=== PATIENT | female | born 1985 | race Caucasian/White ===

== ENCOUNTER 2017-02-27 18:36 | Emergency (ER) | payer OTHER ==
[2017-02-27 18:58] VITALS: PULSE 97; RESP 18
[2017-02-27] MEDS ORDERED: SODIUM CHLORIDE 0.9% 500 ML IV STA (19:53)
[2017-02-27] MEDS ORDERED: ONDANSETRON 4 MG/2 ML VIAL IVP STA (19:53)
[2017-02-27] MEDS ORDERED: KETOROLAC 30 MG/ML 1 ML VIAL IVP STA (19:53)
--- NOTE | 2017-02-27 20:00 | ED ---
General Adult HPI - General Chief complaint: Dizziness Stated complaint: chest tightness, hypertension, left shoulder numb Time Seen by Provider: 02/27/17 19:30 Source: patient, family, RN notes reviewed, old records reviewed Mode of arrival: wheelchair Limitations: no limitations - History of Present Illness Initial comments: Chief complaint history of present illness this is a 29-year-old female here with several complaints. The patient reports for the past several days she's had a headache and dizziness. She was evaluated today by her chronic pain management doctor blood pressure was elevated. It was suspected that her dizziness was associated with elevated blood pressure. She's less dizziness when she was earlier. She does have a headache. Nausea no vomiting no photophobia she does have a history of migraines. The patient's blood pressure today is 130/71. And again she is less dizzy. She also had shots in her left trapezius muscle because of chronic pain and stiffness. - Related Data Home Medications Medication Instructions Recorded Confirmed Cholecalciferol (Vitamin D3) 2,000 unit PO DAILY 02/27/17 02/27/17 [Vitamin D3] DULoxetine HCL [Cymbalta] 30 mg PO BID 02/27/17 02/27/17 Ferrous Sulfate [Feosol] 325 mg PO DAILY 02/27/17 02/27/17 Fexofenadine HCl [Ciera Allergy] 180 mg PO HS 02/27/17 02/27/17 Gabapentin [Neurontin] 800 mg PO QID 02/27/17 02/27/17 Ibuprofen 800 mg PO TID PRN 02/27/17 02/27/17 Magnesium Oxide [Mag-Ox] 250 mg PO TID 02/27/17 02/27/17 Methocarbamol [Robaxin] 750 mg PO Q4H PRN 02/27/17 02/27/17 Omeprazole [PriLOSEC] 40 mg PO DAILY 02/27/17 02/27/17 Ondansetron [Zofran] 4 mg PO QAM 02/27/17 02/27/17 Polyethylene Glycol 3350 [Miralax] 17 gm PO DAILY PRN 02/27/17 02/27/17 oxyCODONE-APAP 5-325MG [Percocet 1 tab PO BID PRN 02/27/17 02/27/17 5-325 mg] traZODone HCL 25 mg PO HS 02/27/17 02/27/17 Allergies Allergy/AdvReac Type Severity Reaction Status Date / Time acetaminophen [From Vicodin] Allergy Itching Verified 02/27/17 19:26 hydrocodone [From Vicodin] Allergy Itching Verified 02/27/17 19:26 Penicillins Allergy Rash/Hives Verified 02/27/17 19:26 Review of Systems ROS Statement: Those systems with pertinent positive or pertinent negative responses have been documented in the HPI. Review of systems. Mild headache mild photophobia no stiff neck or meningismus. She reports she has some discomfort to her chest which takes deep breath lateral rib cage. Dizziness was worse yesterday before when her blood pressure was elevated today less dizzy. As noted in the chief complaint and she did receive several shots in her left trapezius muscle. She states her left arm pain which is chronic is better today for the having had low shots. All systems were reviewed past medical problems significant for seizure disorder last time she had a seizure was 6 years ago. He does not take the Lamictal described by [facility] she does take Neurontin. She also had a syncopal episodes when she was younger due to low blood pressure. She also has had an injury to her right ankle less the surgery. Resulted in chronic regional pain syndrome type II to her leg. She's had 2 C-sections and laparoscopy. Family history noncontributory ALLERGIES to acetaminophen hydrocodone penicillins. She smokes daily strongly encouraged to stop denies alcohol use denies drugs ROS Other: All systems not noted in ROS Statement are negative. Past Medical History Past Medical History: Seizure Disorder, Syncope Additional Past Medical History / Comment(s): CRPS2; Chronic back pain; Pelvic floor tension myalgia History of Any Multi-Drug Resistant Organisms: None Reported Past Surgical History: Section, Orthopedic Surgery Additional Past Surgical History / Comment(s): Laparoscopy Past Anesthesia/Blood Transfusion Reactions: No Reported Reaction Past Psychological History: Anxiety Smoking Status: Current every day smoker Past Alcohol Use History: None Reported Past Drug Use History: None Reported - Past Family History Mother Family Medical History: No Reported History General Exam - General Exam Comments Initial Comments: General: The patient is awake and alert, planes of being dizzy yesterday before during which time her blood pressure was elevated. Less dizzy today when her blood pressure is down. No nausea no vomiting but she does have headache ongoing for several days does have history of migraines. Vital signs show temperature 97.5 pulse 97 respiratory rate 18 pulse ox 97% room air blood pressure 131/71 Eye: Pupils are equal, round and reactive to light, extra-ocular movements are intact ; there is normal conjunctiva bilaterally. No signs of icterus. Mild photophobia Ears, nose, mouth and throat: There are moist mucous membranes . Neck: The neck is supple, patient received 2 shots in her left trapezius muscle by her pain management doctor today. Cardiovascular: There is a regular rate and rhythm. No murmur, rub or gallop is appreciated. Respiratory: Lungs are clear to auscultation, respirations are non-labored, breath sounds are equal. No wheezes, stridor, rales, or rhonchi. Deep breathing and coughing causes discomfort to the lateral chest rich. Gastrointestinal: Soft, non-distended, non-tender abdomen without masses or organomegaly noted. There is no rebound or guarding present. Back: Chronic musculoskeletal pain Musculoskeletal: Chronic pain to left wrist post injury when she fell through a glass while having a seizure many years ago. Also chronic left foot ankle pain from a crush injury on the job. Neurological: No focal or lateralizing findings. No stiff neck no meningismus. History of migraines. Skin: Skin is warm and dry and no rashes or lesions are noted. Limitations: no limitations Course Vital Signs 02/27/17 18:55 Temperature 97.5 F L Pulse Rate 97 Respiratory 18 Rate Blood Pressure 131/71 O2 Sat by Pulse 97 Oximetry EKG Findings - EKG Comments: EKG Findings:: EKG was done and reviewed at 1845 showing normal sinus rhythm with sinus arrhythmia no acute ST elevation no ectopy no ischemic changes. Rate 83 VA interval was 122 QRS 88 QT [address] Barrera Medical Decision Making - Medical Decision Making Vital decision making the patient's white count is 9.8 hemoglobin 14 hematocrit of 41 with a BUN to creatinine 0.6 and GFR greater than 60. Potassium 4.3 glucose 1:15 troponin less than 0.012. Patient did not wait at the chest x-ray she states she feels better wants to go home. Patient advised to follow-up with family physician - Lab Data Result diagrams: 02/27/17 20:15 02/27/17 20:15 Lab Results 02/27/17 02/27/17 02/27/17 Range/Units 20:15 20:15 20:15 WBC 9.8 (3.8-10.6) k/uL RBC 4.48 (3.80-5.40) m/uL Hgb 14.2 (11.4-16.0) gm/dL Hct 41.4 (34.0-46.0) % MCV 92.3 (80.0-100.0) fL MCH 31.6 (25.0-35.0) pg MCHC 34.3 (31.0-37.0) g/dL RDW 13.3 (11.5-15.5) % Plt Count 184 (150-450) k/uL Neutrophils % 91 % Lymphocytes % 7 % Monocytes % 1 % Eosinophils % 0 % Basophils % 0 % Neutrophils # 8.9 H (1.3-7.7) k/uL Lymphocytes # 0.7 L (1.0-4.8) k/uL Monocytes # 0.1 (0-1.0) k/uL Eosinophils # 0.0 (0-0.7) k/uL Basophils # 0.0 (0-0.2) k/uL Sodium 142 (137-145) mmol/L Potassium 4.3 (3.5-5.1) mmol/L Chloride 114 H (98-107) mmol/L Carbon Dioxide 20 L (22-30) mmol/L Anion Gap 8 mmol/L BUN 7 (7-17) mg/dL Creatinine 0.60 (0.52-1.04) mg/dL Est GFR (MDRD) Af Amer >60 (>60 ml/min/1.73 sqM) Est GFR (MDRD) Non-Af >60 (>60 ml/min/1.73 sqM) Glucose 115 H (74-99) mg/dL Calcium 9.5 (8.4-10.2) mg/dL Total Bilirubin 0.4 (0.2-1.3) mg/dL AST 17 (14-36) U/L ALT 33 (9-52) U/L Alkaline Phosphatase 54 (38-126) U/L Troponin I <0.012 (0.000-0.034) ng/mL Total Protein 6.5 (6.3-8.2) g/dL Albumin 4.1 (3.5-5.0) g/dL Disposition Clinical Impression: Dizziness Disposition: HOME SELF-CARE Condition: Fair Instructions: Dizziness (ED) Additional Instructions: Change positions slowly follow with her family physician take medications as directed Referrals: Clementina Galvan MD [Primary Care Provider] - 1-2 days Time of Disposition: 22:16
[2017-02-27 20:22] LABS: Basophils % (A) 0 %; CH 31.7; CHCM 34.5; Eosinophils % (A) 0 %; HCT 41.4 % (34.0-46.0); HDW 2.31; HGB 14.2 gm/dL (11.4-16.0); Luc # (Auto) 0.03; Luc % (Auto) 0; Lymphocytes # (A) 0.7 k/uL (1.0-4.8); Lymphocytes % (A) 7 %; MCH 31.6 pg (25.0-35.0); MCHC 34.3 g/dL (31.0-37.0); MCV 92.3 fL (80.0-100.0); Mean Platelet Volume 10.8; Monocytes # (A) 0.1 k/uL (0-1.0); Monocytes % (A) 1 %; Neutrophils # (A) 8.9 k/uL (1.3-7.7); Neutrophils % (A) 91 %; RBC 4.48 m/uL (3.80-5.40); RDW 13.3 % (11.5-15.5); WBC 9.8 k/uL (3.8-10.6); WBC (Perox) 9.72
[2017-02-27 20:46] LABS: ALT 33 U/L (9-52); AST 17 U/L (14-36); Alkaline Phosphatase 54 U/L (38-126); Anion Gap 8 mmol/L; Blood Urea Nitrogen 7 mg/dL (7-17); Calcium 9.5 mg/dL (8.4-10.2); Carbon Dioxide 20 mmol/L (22-30); Chloride 114 mmol/L (98-107); Glucose 115 mg/dL (74-99); Non-African American GFR(MDRD) >60 (>60 ml/min/1.73 sqM); Potassium 4.3 mmol/L (3.5-5.1); Sodium 142 mmol/L (137-145); Total Bilirubin 0.4 mg/dL (0.2-1.3); Total Protein 6.5 g/dL (6.3-8.2)
[2017-02-27 22:51] VITALS: BP 127/59; TEMP 98.6
== END 2017-02-27 22:52 | disposition home or self-care (01) ==
LOC: EC 18:36
DX: R42 Dizziness and giddiness (principal); G40.909 Epilepsy, unspecified, not intractable, without status epilepticus; R51 Headache; R07.89 Other chest pain; R20.0 Anesthesia of skin; G89.29 Other chronic pain; M54.9 Dorsalgia, unspecified; F41.9 Anxiety disorder, unspecified; F17.200 Nicotine dependence, unspecified, uncomplicated; Z86.69 Personal history of other diseases of the nervous system and sense organs; Z79.899 Other long term (current) drug therapy; Z88.5 Allergy status to narcotic agent; Z88.0 Allergy status to penicillin
CPT/HCPCS: 96361 ×4; 96374 ×2; 96375 ×2; 99284 ×2; 36415; 93005; 80053; 84484; 85025; J2405; J1885

== ENCOUNTER 2017-03-08 18:29 | Emergency (ER) | payer OTHER ==
[2017-03-08] MEDS ORDERED: LORazepam 2 MG/ML SYRINGE IV STA (19:09)
--- NOTE | 2017-03-08 19:17 | ED ---
General Adult HPI - General Chief complaint: Seizure Stated complaint: SEIZURE X 3 Source: patient, family, RN notes reviewed, old records reviewed Mode of arrival: wheelchair Limitations: no limitations - History of Present Illness Initial comments: Complaint history of present illness is a 31-year-old female here because she had 2 possibly 3 seizures today lasting less than 2 minutes. Her significant other reports she had one just prior to coming in the room there was no post ictal. With this particular seizure. She also reports she's been dizzy lately bumped her head 3 days ago had a seizure home yesterday. She does have a history of seizures and used to be on Lamictal but has not been taking that for a long time because her last seizure prior to yesterday was 6 years ago. Her significant other reports that seizures are usually related to stress. Patient is seeing a doctor for chronic pain and her seizures. She takes gabapentin for both seizures and chronic pain. She is also on Percocet. Her significant other who is at bedside was giving the nurse a hard time while she while she was starting an IV. He was asked to allow her to do her job. He is also asked to allow the patient to answer questions. - Related Data Home Medications Medication Instructions Recorded Confirmed Cholecalciferol (Vitamin D3) 2,000 unit PO DAILY 02/27/17 03/08/17 [Vitamin D3] DULoxetine HCL [Cymbalta] 30 mg PO BID 02/27/17 03/08/17 Ferrous Sulfate [Feosol] 325 mg PO DAILY 02/27/17 03/08/17 Fexofenadine HCl [Ciera Allergy] 180 mg PO HS 02/27/17 03/08/17 Gabapentin [Neurontin] 800 mg PO QID 02/27/17 03/08/17 Ibuprofen 800 mg PO TID PRN 02/27/17 03/08/17 Magnesium Oxide [Mag-Ox] 250 mg PO DAILY 02/27/17 03/08/17 Methocarbamol [Robaxin] 750 mg PO Q4H PRN 02/27/17 03/08/17 Omeprazole [PriLOSEC] 40 mg PO DAILY 02/27/17 03/08/17 Ondansetron [Zofran] 4 mg PO DAILY PRN 02/27/17 03/08/17 oxyCODONE-APAP 5-325MG [Percocet 1 tab PO BID PRN 02/27/17 03/08/17 5-325 mg] traZODone HCL 25 mg PO HS 02/27/17 03/08/17 Previous Rx's Medication Instructions Recorded Phenytoin Sodium Extended 100 mg PO TID #90 capsule 03/08/17 [Dilantin] Allergies Allergy/AdvReac Type Severity Reaction Status Date / Time acetaminophen [From Vicodin] Allergy Itching Verified 03/08/17 19:39 hydrocodone [From Vicodin] Allergy Itching Verified 03/08/17 19:39 Penicillins Allergy Rash/Hives Verified 03/08/17 19:39 Review of Systems ROS Statement: Those systems with pertinent positive or pertinent negative responses have been documented in the HPI. You have systems mild headache mild photophobia she does have history of migraines. No complaint of visual acuity changes. She did get 2 shots in her neck approximately 9 days ago which she states helped the pain. Denies chest pain shortness breath GI/ problems. States she's under great deal stress because they're moving. All systems are reviewed. Past medical problems seizure disorder as noted above last seizure was over 6 years ago. He is to take Lamictal but stopped it after the seizure stopped for a prolonged period of time 1 history syncopal episode years ago. Chronic pain to her ankle and hand from previous injuries. Also chronic back pain. Surgeries and laparoscopy. ALLERGIES to acetaminophen hydrocodone and penicillin. Smokes daily. Denies alcohol use denies illegal drug use ROS Other: All systems not noted in ROS Statement are negative. Past Medical History Past Medical History: Seizure Disorder, Syncope Additional Past Medical History / Comment(s): CRPS2; Chronic back pain; Pelvic floor tension myalgia History of Any Multi-Drug Resistant Organisms: None Reported Past Surgical History: Section, Orthopedic Surgery Additional Past Surgical History / Comment(s): Laparoscopy Past Anesthesia/Blood Transfusion Reactions: No Reported Reaction Past Psychological History: Anxiety Smoking Status: Current every day smoker Past Alcohol Use History: None Reported Past Drug Use History: None Reported - Past Family History Mother Family Medical History: No Reported History General Exam - General Exam Comments Initial Comments: General: The patient is awake and alert, in no distress, and does not appear acutely ill. She has seizures when she is under stress. Also complaining of a headache , history of chronic migraines. Vital signs temperature 98.6 pulse 96 respiratory rate 18 pulse ox 90% room air blood pressure 140/69 Eye: Pupils are equal, round and reactive to light, extra-ocular movements are intact ; there is normal conjunctiva bilaterally. No signs of icterus. Ears, nose, mouth and throat: There are moist mucous membranes and no oral lesions. Neck: Chronic neck and back pain and left arm pain. Received shots in her left trapezius muscle 9 days ago. Cardiovascular: There is a regular rate and rhythm. No murmur, rub or gallop is appreciated. Respiratory: Lungs are clear to auscultation, respirations are non-labored, breath sounds are equal. No wheezes, stridor, rales, or rhonchi. Gastrointestinal: Soft, non-distended, non-tender abdomen without masses or organomegaly noted. There is no rebound or guarding present. No CVA tenderness. Bowel sounds are unremarkable. Back: Chronic back pain no new back pain. Denies falling recently. Musculoskeletal: Chronic ankle and hand pain from previous injuries. Neurological: Neurologically grossly intact, no focal or lateralizing findings other than chronic pain to ankle and left hand from previous injuries. Skin: Skin is warm and dry and no rashes or lesions are noted. Psychiatric: Past psychological history of anxiety. Significant other states her seizures are often precipitated by stress. Limitations: no limitations Course Vital Signs 03/08/17 18:31 Temperature 98.6 F Pulse Rate 96 Respiratory 18 Rate Blood Pressure 140/69 O2 Sat by Pulse 98 Oximetry Medical Decision Making - Medical Decision Making Medical decision making; patient's white count is 10 hemoglobin 14 hematocrit of 44, potassium 4.0 with a BUN 6 creatinine 0.8 GFR greater than 60. Glucose 73. Urine was positive for oxycodone. The patient does states she takes Percocet. CT the brain was done and reviewed by radiologist his findings are there is no acute intracranial hemorrhage, mass effect, midline shift identified. The ventricles and sulci are within normal limits in size. Donaldson-white matter differentiation is maintained. The globes are intact and the visualized sinuses are clear. Impression; no acute intracranial hemorrhage, mass effect, or midline shift seen. Unremarkable study. As read by Dr. alva The patient was given 1 mg of Ativan IV in part to help her relax and she was anxious. She states under stress she seems to have seizures. The patient does have a neurologist. Patient states she's been on various medications for seizures but she didn't like the way typical made her feel. In the meanwhile patient released given a starting dose by IV loading of Dilantin 500 mg and placed on Dilantin to be taken until she follows up with her neurologist. She will be placed on Dilantin 100 mg 3 times daily until she sees her neurologist. - Lab Data Result diagrams: 03/08/17 19:00 03/08/17 19:00 Lab Results 03/08/17 03/08/17 03/08/17 Range/Units 19:00 19:00 19:50 WBC 10.1 (3.8-10.6) k/uL RBC 4.63 (3.80-5.40) m/uL Hgb 14.3 (11.4-16.0) gm/dL Hct 44.0 (34.0-46.0) % MCV 95.1 (80.0-100.0) fL MCH 31.0 (25.0-35.0) pg MCHC 32.5 (31.0-37.0) g/dL RDW 13.5 (11.5-15.5) % Plt Count 198 (150-450) k/uL Neutrophils % 65 % Lymphocytes % 27 % Monocytes % 5 % Eosinophils % 2 % Basophils % 1 % Neutrophils # 6.5 (1.3-7.7) k/uL Lymphocytes # 2.7 (1.0-4.8) k/uL Monocytes # 0.6 (0-1.0) k/uL Eosinophils # 0.2 (0-0.7) k/uL Basophils # 0.1 (0-0.2) k/uL Sodium 140 (137-145) mmol/L Potassium 4.0 (3.5-5.1) mmol/L Chloride 105 (98-107) mmol/L Carbon Dioxide 25 (22-30) mmol/L Anion Gap 10 mmol/L BUN 6 L (7-17) mg/dL Creatinine 0.80 (0.52-1.04) mg/dL Est GFR (MDRD) Af Amer >60 (>60 ml/min/1.73 sqM) Est GFR (MDRD) Non-Af >60 (>60 ml/min/1.73 sqM) Glucose 73 L (74-99) mg/dL Calcium 9.5 (8.4-10.2) mg/dL Total Bilirubin 0.3 (0.2-1.3) mg/dL AST 21 (14-36) U/L ALT 31 (9-52) U/L Alkaline Phosphatase 54 (38-126) U/L Total Protein 6.6 (6.3-8.2) g/dL Albumin 4.3 (3.5-5.0) g/dL Urine Opiates Screen Not Detected (NotDetected) Ur Oxycodone Screen Detected H (NotDetected) Urine Methadone Screen Not Detected (NotDetected) Ur Propoxyphene Screen Not Detected (NotDetected) Ur Barbiturates Screen Not Detected (NotDetected) U Tricyclic Antidepress Not Detected (NotDetected) Ur Phencyclidine Scrn Not Detected (NotDetected) Ur Amphetamines Screen Not Detected (NotDetected) U Methamphetamines Scrn Not Detected (NotDetected) U Benzodiazepines Scrn Not Detected (NotDetected) Urine Cocaine Screen Not Detected (NotDetected) U Marijuana (THC) Screen Not Detected (NotDetected) Disposition Clinical Impression: Generalized seizure Disposition: HOME SELF-CARE Condition: Stable Instructions: Recurrent Seizures in Adults (ED) Additional Instructions: Follow-up with your neurologist and your family doctor. Take Dilantin 100 mg 3 times daily. Prescriptions: Phenytoin Sodium Extended [Dilantin] 100 mg PO TID #90 capsule Referrals: Clementina Galvan MD [Primary Care Provider] - 1-2 days Jones Pretty MD [STAFF PHYSICIAN] - 1-2 days Time of Disposition: 21:24
[2017-03-08 19:18] LABS: Basophils # (A) 0.1 k/uL (0-0.2); Basophils % (A) 1 %; CH 31.7; CHCM 33.5; Eosinophils # (A) 0.2 k/uL (0-0.7); Eosinophils % (A) 2 %; HDW 2.18; HGB 14.3 gm/dL (11.4-16.0); Luc # (Auto) 0.12; Luc % (Auto) 1; Lymphocytes # (A) 2.7 k/uL (1.0-4.8); Lymphocytes % (A) 27 %; MCHC 32.5 g/dL (31.0-37.0); MCV 95.1 fL (80.0-100.0); Monocytes # (A) 0.6 k/uL (0-1.0); Monocytes % (A) 5 %; Neutrophils # (A) 6.5 k/uL (1.3-7.7); Neutrophils % (A) 65 %; RBC 4.63 m/uL (3.80-5.40); RDW 13.5 % (11.5-15.5); WBC 10.1 k/uL (3.8-10.6); WBC (Perox) 10.53
[2017-03-08 19:33] LABS: ALT 31 U/L (9-52); AST 21 U/L (14-36); Alkaline Phosphatase 54 U/L (38-126); Anion Gap 10 mmol/L; Blood Urea Nitrogen 6 mg/dL (7-17); Calcium 9.5 mg/dL (8.4-10.2); Carbon Dioxide 25 mmol/L (22-30); Chloride 105 mmol/L (98-107); Glucose 73 mg/dL (74-99); Non-African American GFR(MDRD) >60 (>60 ml/min/1.73 sqM); Sodium 140 mmol/L (137-145); Total Bilirubin 0.3 mg/dL (0.2-1.3); Total Protein 6.6 g/dL (6.3-8.2)
--- NOTE | 2017-03-08 19:42 | CT ---
EXAMINATION TYPE: CT brain wo con DATE OF EXAM: 03/08/2017 COMPARISON: MRI brain December 18, 2012. HISTORY: Seizure today. Hx of seizures. CT DLP: 918.7 mGycm. Automated Exposure Control for Dose Reduction was Utilized. TECHNIQUE: CT scan of the head is performed without contrast. FINDINGS: There is no acute intracranial hemorrhage, mass effect, or midline shift identified. The ventricles and sulci are within normal limits in size. Mcgraw-white matter differentiation is maintai tim. The globes are intact and the visualized sinuses are clear. IMPRESSION: No acute intracranial hemorrhage, mass effect, or midline shift is seen. Unremarkable st udy.
[2017-03-08] MEDS ORDERED: PHENYTOIN SODIUM INJ 500 MG in SODIUM CHLORIDE 0.9% 100 ML IVPB STA (20:30)
[2017-03-08 21:44] VITALS: BP 114/67; PULSE 70; RESP 16; TEMP 98
== END 2017-03-08 21:43 | disposition home or self-care (01) ==
LOC: EC 18:29
DX: G40.409 Other generalized epilepsy and epileptic syndromes, not intractable, without status epilepticus (principal); M54.9 Dorsalgia, unspecified; G89.29 Other chronic pain; F41.9 Anxiety disorder, unspecified; F17.200 Nicotine dependence, unspecified, uncomplicated; Z88.0 Allergy status to penicillin; Z88.5 Allergy status to narcotic agent; Z79.899 Other long term (current) drug therapy
CPT/HCPCS: 36415; 80053; 85025; 80306; 70450; 99284; 96365; 96375; J2060; J1165

== ENCOUNTER → 2017-08-06 | Outpatient (CLI) | payer OTHER ==
--- NOTE | 2017-08-06 23:14 | MR ---
EXAMINATION TYPE: MR brain wo con DATE OF EXAM: 08/06/2017 COMPARISON: 12/18/2012 HISTORY: headaches, dizzy, previous MRI on PACS Standard multiplanar, multisequence MRI departmental protocol Multiplanar, multisequence images of the brain were acquired. Diffusion weighted imaging was performe d. FINDINGS: The ventricles and sulci appear normal. There is no mass effect nor midline shift. There is no sign of intracranial hemorrhage. Brainstem appears normal. Corpus callosum is normal. Sella turci ca is normal. There is minimal mucosal thickening in the left maxillary sinus. IMPRESSION: Normal MRI scan of the brain. Minimal left maxillary sinusitis. No change compared to old exam.
== END | disposition home or self-care (01) ==
LOC: RADMRIMAIN 21:18
PROVIDERS: ATTEND Psychiatry & Neurology Neurology
DX: R42 Dizziness and giddiness (principal); R51 Headache; Z88.0 Allergy status to penicillin; Z88.5 Allergy status to narcotic agent
CPT/HCPCS: 70551